=== PATIENT | male | born 1950 | race Caucasian/White ===

== ENCOUNTER 2018-01-01 14:20 | Emergency (ER) | payer MEDICARE ==
--- NOTE | 2018-01-01 15:28 | ER Document Report ---
HPI - HPI Patient complains to provider of: Right hand pain Onset: Other - 3 weeks Onset/Duration: Persistent Quality of pain: Achy Pain Level: 5 Context: Patient presents complaining of right hand pain involving his right second metacarpal that extends into his right second finger and subtly into the right third finger. Patient has seen his primary doctor for this as well as the urgent care on 2 separate occasions. Patient was treated for gout last week with Indocin without any improvement of his symptoms. Patient states that he returned to his doctor today and was advised to come here for antibiotics. patient denies any injury Associated Symptoms: Other - Right hand pain and swelling. denies: Fever Exacerbated by: Movement Relieved by: Denies Similar symptoms previously: No Recently seen / treated by doctor: Yes - ROS ROS below otherwise negative: Yes Systems Reviewed and Negative: Yes All other systems reviewed and negative - CONSTITUTIONAL Constitutional: DENIES: Fever, Chills - MUSCULOSKELETAL Musculoskeletal: REPORTS: Extremity pain, Swelling - DERM Skin Color: Erythema Skin Problems: None Past Medical History - General Information source: Patient - Social History Smoking Status: Never Smoker Frequency of alcohol use: Occasional Drug Abuse: None Occupation: None Family History: Reviewed & Not Pertinent - Past Medical History Cardiac Medical History: Reports: Hx Hypertension Neurological Medical History: Reports: Hx Seizures Skin Medical History: Reports Hx Eczema Surgical Hx: Negative Vertical Provider Document - CONSTITUTIONAL Exam Limitations: No Limitations General Appearance: WD/WN, No Apparent Distress - INFECTION CONTROL TRAVEL OUTSIDE OF THE [place] IN LAST 30 DAYS: No - HEENT HEENT: Atraumatic, Normocephalic - NECK Neck: Normal Inspection - RESPIRATORY Respiratory: Breath Sounds Normal, No Respiratory Distress - CARDIOVASCULAR Cardiovascular: Regular Rate, Regular Rhythm Pulses: Normal: Radial - BACK Back: Normal Inspection - MUSCULOSKELETAL/EXTREMETIES Musculoskeletal/Extremeties: Tender - Right hand second MCP tenderness with overlying erythema, area is swollen, patient with tenderness to right second finger. Patient with tenderness with palpation of flexor tendon, Edema - NEURO Level of Consciousness: Awake, Alert, Appropriate Motor/Sensory: No Motor Deficit - DERM Integumentary: Warm, Dry Notes: Erythema overlying right second MCP joint Patient with skin peeling concerning for eczema to right hand Course - Re-evaluation Re-evalutation: 01/01/18 17:33 Dr. Sharma to bedside for examination, recommend CT with IV contrast of the affected area, does not suspect flexor tenosynovitis 01/01/18 20:[address] Sharma regarding patient's CT scan report. Recommends obtaining patient's tetanus given foreign body on skin report. Also recommends placing patient on Cipro and clindamycin and having him follow-up with orthopedic doctor as an outpatient. No concern for tenosynovitis at this time. No concern for drainable abscess. 01/01/18 20:26 Patient had an erroneously recorded oxygen saturation of 62%. The IT department has been unable to correct this in the chart. - Vital Signs Vital signs: 01/01/18 15:51 01/01/18 15:55 Temp Pulse Resp BP Pulse Ox 01/01/18 15:52 97 01/01/18 15:32 62 97 01/01/18 14:44 98.4 F 62 18 136/54 H 97 - Laboratory Result Diagrams: 01/01/18 16:00 01/01/18 16:00 Laboratory results interpreted by me: 01/01/18 20:25 Labs- Entire Visit 01/01/18 01/01/18 16:00 16:00 WBC 10.2 RBC 4.55 Hgb 13.5 Hct 39.6 MCV 87 MCH 29.6 MCHC 34.0 RDW 14.0 Plt Count 314 Seg Neutrophils % 55.6 Lymphocytes % 29.9 Monocytes % 10.3 Eosinophils % 3.4 Basophils % 0.8 Absolute Neutrophils 5.6 Absolute Lymphocytes 3.0 Absolute Monocytes 1.0 Absolute Eosinophils 0.3 Absolute Basophils 0.1 ESR 50 H Sodium 138.1 Potassium 4.5 Chloride 102 Carbon Dioxide 25 Anion Gap 11 BUN 22 H Creatinine 0.79 Est GFR ( Amer) > 60 Est GFR (Non-Af Amer) > 60 Glucose 102 Uric Acid 5.3 Calcium 10.4 H C-Reactive Protein 35.8 H - Diagnostic Test Radiology reviewed: Image reviewed, Reports reviewed Discharge - Discharge Clinical Impression: Foreign body of finger Hand pain Qualifiers: Laterality: right Qualified Code(s): M79.641 - Pain in right hand Cellulitis Qualifiers: Site of cellulitis: extremity Site of cellulitis of extremity: upper extremity Laterality: right Qualified Code(s): L03.113 - Cellulitis of right upper limb Condition: Stable Disposition: HOME, SELF-CARE Instructions: Cellulitis ([facility]), Ciprofloxacin ([facility]), Clindamycin ([facility]), Retained Subcutaneous Foreign Object ([facility]) Additional Instructions: Return immediately for any new or worsening symptoms Followup with your primary care provider, call tomorrow to make a followup appointment Follow-up with orthopedic hand specialist, call Thursday for an appointment Prescriptions: Ciprofloxacin HCl [Cipro 500 mg Tablet] 500 mg PO BID #14 tablet Clindamycin HCl [Cleocin Hcl] 300 mg PO QID #28 capsule Referrals: ELICIA ODONNELL MD [Primary Care Provider] - Follow up as needed LISBET TARANGO DO [ACTIVE STAFF] - 01/04/18
--- NOTE | 2018-01-01 15:57 | RADIOLOGY REPORT (SQ) ---
EXAM DESCRIPTION: HAND RIGHT 3 VIEWS COMPLETED DATE/TIME: 01/01/2018 3:37 pm REASON FOR STUDY: r 2nd MCP pain, 2nd finger pain/swelling COMPARISON: 08/20/2016 EXAM PARAMETERS: NUMBER OF VIEWS: Three views. TECHNIQUE: AP, lateral and oblique radiographic images acquired of the right hand. LIMITATIONS: None. FINDINGS: MINERALIZATION: Normal. BONES: Cystic changes are present in the lunate. No acute osseous abnormality is seen. JOINTS: The widening of the scapholunate interval seen on the prior study is slightly less prominent. SOFT TISSUES: No soft tissue swelling. No foreign body. OTHER: No other significant finding. IMPRESSION: There is no acute abnormality. Findings are as described. TECHNICAL DOCUMENTATION: JOB ID: [id number] [employer]- All Rights Reserved Reading location - IP/workstation name: [email or web address]
[2018-01-01 16:17] LABS: ABSOLUTE BASOPHILS # (AUTO) 0.1 10^3/uL (0.0-0.2); ABSOLUTE EOSINOPHILS # (AUTO) 0.3 10^3/uL (0.0-0.6); ABSOLUTE NEUT (AUTO) 5.6 10^3/uL (1.7-8.2); BASOPHILS % (AUTO) 0.8 % (0-2); EOSINOPHILS % (AUTO) 3.4 % (0-6); HEMATOCRIT 39.6 % (37.9-51.0); HEMOGLOBIN 13.5 g/dL (13.5-17.0); LYMPHOCYTES % (AUTO) 29.9 % (13-45); MEAN CORPUSCULAR HEMOGLOBIN 29.6 pg (27.0-33.4); MEAN CORPUSCULAR VOLUME 87 fl (80-97); MONOCYTES % (AUTO) 10.3 % (3-13); PLATELET COUNT 314 10^3/uL (150-450); RED BLOOD COUNT 4.55 10^6/uL (4.35-5.55); SEGMENTED NEUTROPHILS % (AUTO) 55.6 % (42-78); TOTAL CELLS COUNTED % (AUTO) 100 %; WHITE BLOOD COUNT 10.2 10^3/uL (4.0-10.5)
[2018-01-01 16:37] LABS: ANION GAP 11 (5-19); BLOOD UREA NITROGEN 22 mg/dL (7-20); C-REACTIVE PROTEIN 35.8 mg/L (<10.0); CALCIUM 10.4 mg/dL (8.4-10.2); CARBON DIOXIDE 25 mmol/L (22-30); CHLORIDE 102 mmol/L (98-107); GLUCOSE 102 mg/dL (75-110); POTASSIUM 4.5 mmol/L (3.6-5.0); SODIUM 138.1 mmol/L (137-145); URIC ACID 5.3 mg/dL (3.5-8.5)
[2018-01-01 16:59] LABS: ERYTHROCYTE SEDIMENTATION RATE 50 mm/hr (0-20)
[2018-01-01] MEDS ORDERED: ACETAMINOPHEN 325 MG TABLET PO ONE (18:29)
--- NOTE | 2018-01-01 20:09 | RADIOLOGY REPORT (SQ) ---
EXAM DESCRIPTION: CT RT UPPER EXTREMITY WITH COMPLETED DATE/TIME: 01/01/2018 7:27 pm REASON FOR STUDY: R hand 2,3 finger pain, swelling COMPARISON: None. TECHNIQUE: Postcontrast axial imaging performed through the right hand with reformatted coronal and sagittal imaging windowed for bone and soft tissues. Images saved to PACS. 3D IMAGING: Were 3D images as MIP, SSD, or volume rendering performed at the work station? Yes All CT scanners at this facility use dose modulation, iterative reconstruction, and/or weight based d osing when appropriate to reduce radiation dose to as low as reasonably achievable (ALARA). [facility]: Dose Right [facility]: CareDose [facility]: Dose Right [facility]: Teradose 4D [facility]: [place] CONTRAST TYPE AND DOSE: contrast/concentration: Isovue 370.00 mg/ml; Total Contrast Delivered: 50.0 ml; Total Saline Delivered: 60.0 ml RENAL FUNCTION: GFR > 60. LIMITATIONS: None. RADIATION DOSE: CT Rad equipment meets quality standard of care and radiation dose reduction techniq ues were employed. CTDIvol: 2.6 mGy. DLP: 65 mGy-cm.mGy. FINDINGS: 2 mm metallic foreign body in the dorsal soft tissues of the 2nd digit slightly distal and radial to the PIP. Diffuse soft tissue swelling in the 2nd digit more focal in the flexor aspect of the PIP. Mild swelling of the 3rd digit. No defined fluid collection or rim enhancing abscess. No fracture or dislocation. OTHER: No other significant finding. IMPRESSION: 2 mm metallic foreign body in the dorsal soft tissues of the 2nd digit slightly distal a nd radial to the PIP. Diffuse soft tissue swelling in the 2nd digit more focal in the flexor aspect of the PIP. Mild swelling of the 3rd digit. No defined fluid collection or rim enhancing abscess. No fracture or dislocation. TECHNICAL DOCUMENTATION: JOB ID: [id number] [place]-72 Quality ID # [id number]: Final reports with documentation of one or more dose reduction techniques (e.g., Au tomated exposure control, adjustment of the mA and/or kV according to patient size, use of iterative reconstruction technique) 2010 [employer]- All Rights Reserved Reading location - IP/workstation name: [email or web address]
[2018-01-01] MEDS ORDERED: CIPROFLOXACIN HCL 500 MG TABLET PO ONE (20:23)
[2018-01-01] MEDS ORDERED: DIPH/PERTUSS(ACELL)/TETANUS VAC/PF 0.5 ML SYR (>=10YO) IM ONE (20:23)
[2018-01-01] MEDS ORDERED: HYDROCODONE/ACETAMINOPHEN 5-325 MG (6 TAB/ER DISP) PO PRN (20:24)
[2018-01-01] MEDS ORDERED: CLINDAMYCIN HCL 150 MG CAPSULE PO ONE (20:24)
[2018-01-01 21:08] VITALS: BP 134/55
== END 2018-01-01 21:09 | disposition home or self-care (01) ==
LOC: ER 14:20
DX: S60.459A Superficial foreign body of unspecified finger, initial encounter (principal); L03.113 Cellulitis of right upper limb; M79.641 Pain in right hand; M79.89 Other specified soft tissue disorders; Z79.899 Other long term (current) drug therapy; X58.XXXA Exposure to other specified factors, initial encounter
CPT/HCPCS: 99284; 90471; 36415; 84550; 85025; 85652; 86140; 80048; 73130; 73201; 90715; A9270 ×4

== ENCOUNTER 2018-01-04 10:22 | Inpatient (IN) | payer MEDICARE ==
[2018-01-04] MEDS ORDERED: MIDAZOLAM 2 MG/2 ML INJ ONE (15:19)
[2018-01-04] MEDS ORDERED: LIDOCAINE 2% INJ-PF (20 MG/ML) 10 ML AMPUL ONE (15:19)
[2018-01-04] MEDS ORDERED: FENTANYL CITRATE INJ/PF 100 MCG/2 ML AMPUL ONE (15:19)
[2018-01-04] MEDS ORDERED: PROPOFOL INJ 200 MG/20 ML VIAL IV ONE (15:20)
[2018-01-04] MEDS ORDERED: DEXAMETHASONE SOD PHOSPHATE INJ 4 MG/1 ML VIAL ONE (15:20)
[2018-01-04] MEDS ORDERED: ONDANSETRON HCL INJ/PF 4 MG/2 ML SDV ONE (15:20)
[2018-01-04] MEDS ORDERED: ACETAMINOPHEN 100 ML IV ONE (15:20)
[2018-01-04] MEDS ORDERED: BUPIVACAINE HCL 0.5 % INJ/PF 30 ML SDV ONE (16:44)
[2018-01-04] MEDS ORDERED: LIDOCAINE 1% INJ-PF (10 MG/ML) 30 ML SDV ONE (16:44)
[2018-01-04] MEDS ORDERED: BACITRACIN INJ 50,000 UNIT VIAL ONE (16:44)
[2018-01-04] MEDS ORDERED: ONDANSETRON 4 MG TAB.RAPDIS PO PRN (17:21)
[2018-01-04] MEDS ORDERED: PROMETHAZINE HCL INJ 25 MG/1 ML VIAL IV PRN ×3 (17:21→17:43)
[2018-01-04] MEDS ORDERED: RINGERS SOLUTION,LACTATED 1,000 ML IV PRN (17:21)
[2018-01-04] MEDS ORDERED: CLINDAMYCIN 600 MG/D5W RTU 600 MG/50 ML RTUPB IV ONE (17:22)
[2018-01-04] MEDS ORDERED: DIPHENHYDRAMINE HCL 50 MG/ML VIAL IV PRN (17:43)
[2018-01-04] MEDS ORDERED: MEPERIDINE HCL/PF INJ 25 MG/1 ML DISP.SYRIN IV PRN (17:43)
[2018-01-04] MEDS ORDERED: OXYCODONE-ACETAMINOPHEN 5-325 MG TABLET PO PRN ×3 (17:43→17:59)
[2018-01-04] MEDS ORDERED: FENTANYL CITRATE INJ/PF 100 MCG/2 ML AMPUL IV PRN ×3 (17:43)
[2018-01-04] MEDS ORDERED: MORPHINE SULFATE 10 MG/ML INJ IV PRN (17:43)
[2018-01-04] MEDS ORDERED: ONDANSETRON HCL INJ/PF 4 MG/2 ML SDV IV PRN (17:59)
--- NOTE | 2018-01-04 18:02 | Operative Report ---
Operative Report DATE OF SURGERY: 01/04/18 PREOPERATIVE DIAGNOSIS: Right Index Septic Flexor Tenosynovitis POSTOPERATIVE DIAGNOSIS: Same OPERATION: Irrigation and Excisional Debridement Right Index Finger SURGEON: LISBET TARANGO ANESTHESIA: LMAC TISSUE REMOVED OR ALTERED: Aerobic/Anaerobic/AFB/Fungal COMPLICATIONS: None ESTIMATED BLOOD LOSS: Minimal PROCEDURE: Indication for above procedure: 67-year-old male with pain and swelling of his right index finger which is been ongoing for the past few weeks but worsened on Thursday. He was seen at the emergency room where x-rays and CT scan were done along with labs which demonstrated possible infection. Patient was started on Cipro and clindamycin without resolution of the patient's symptoms. He subsequently followed up at my office at which point we discussed treatment and the importance of operative intervention to decompress the patient's flexor sheath. Risks and benefits were explained patient verbalized understanding consented for the procedure. Procedure In Detail: Patient was seen and evaluated in the preoperative holding area. The RIGHT upper extremity was initialized and marked. Patient antibiotics were held until cultures obtained. Patient was taken back to the operative room where transferred to the operative table. Once they were adequately anesthetized a nonsterile tourniquet was placed on the upper extremity. A surgical team debriefing was performed ensuring all instrumentation was available, the surgical procedure was discussed with possible concerns reviewed. A digital block was performed utilizing 10 mL 50:50 mixture of 0.5% Marcaine and 1% lidocaine without epinephrine. The upper extremity was prepped with chlorhexidine and alcohol and draped in a sterile fashion. A timeout was done identifying correct patient, procedure and extremity everyone in attendance agree with this and verbalized no concerns. The extremity was exsanguinated the tourniquet was inflated to 200 mmHg. Longitudinal skin incision was made centered over the A1 aubrie of the index finger. The radial and ulnar neurovascular bundles were identified and retracted from the wound. The A1 aubrie was identified and incised. The A1 aubrie was released to the level of the A2 aubrie but not through the A2 aubrie. The palmar aponeurotic aubrie was released proximal to the A1 aubrie. Cloudy fluid was expressed from the flexor sheath that extended in a distal direction and was milked from distal to proximal. Cultures were obtained. Any surrounding synovium was excised and sent to microbiology. I then proceeded with a second incision just proximal to the DIP joint crease. Blunt dissection was performed the flexor sheath was then opened. A pediatric feeding tube was then fed from proximal to distal and the flexor sheath was copiously irrigated with saline. No remaining purulence was appreciated. The distal wound was left open to the proximal wound was loosely closed with 2 interrupted 3-0 nylon sutures. Wound was dressed with Xeroform and a soft dressing. Sponge counts, instrument counts, needle counts counts were correct. Patient was then awoken from anesthesia. Transferred from the operating room table to the operating room stretcher. There was no intraoperative complications patient tolerated procedure well stable to PACU. Postoperative plan: Patient will be started on IV clindamycin and Cipro this will be transitioned to the appropriate IV antibiotic pending culture sensitivity.
--- NOTE | 2018-01-04 18:57 | EKG REPORT ---
SEVERITY:- NORMAL ECG - SINUS RHYTHM : Confirmed by: Adrian Dave MD 04-Jan-2018 18:57:12
[2018-01-04] MEDS: LEVETIRACETAM 500 MG TABLET PO SCH (21:51)
[2018-01-04] MEDS: CIPROFLOXACIN 200 MG/D5W RTU 200 MG/100 ML RTUPB IV SCH (21:51)
[2018-01-05] MEDS: CLINDAMYCIN 600 MG/D5W RTU 600 MG/50 ML RTUPB IV SCH ×3 (02:53→16:52)
[2018-01-05 07:30] LABS: ABSOLUTE LYMPHOCYTES (AUTO) 1.1 10^3/uL (0.5-4.7); ABSOLUTE MONOCYTES (AUTO) 0.6 10^3/uL (0.1-1.4); ABSOLUTE NEUT (AUTO) 8.4 10^3/uL (1.7-8.2); BASOPHILS % (AUTO) 0.1 % (0-2); HEMATOCRIT 39.7 % (37.9-51.0); HEMOGLOBIN 13.5 g/dL (13.5-17.0); LYMPHOCYTES % (AUTO) 10.6 % (13-45); MEAN CORPUSCULAR HEMOGLOBIN 29.4 pg (27.0-33.4); MEAN CORPUSCULAR VOLUME 86 fl (80-97); MONOCYTES % (AUTO) 5.9 % (3-13); PLATELET COUNT 299 10^3/uL (150-450); RED CELL DISTRIBUTION WIDTH 13.2 % (11.5-14.0); SEGMENTED NEUTROPHILS % (AUTO) 83.4 % (42-78); TOTAL CELLS COUNTED % (AUTO) 100 %; WHITE BLOOD COUNT 10.1 10^3/uL (4.0-10.5)
--- NOTE | 2018-01-05 07:31 | PDOC PROGRESS REPORT ---
Subjective Progress Note for:: 01/05/18 Subjective:: Patient lying in bed comfortably. States his pain has significantly improved after surgery. Denies numbness or tingling. Denies fever or chills. Reason For Visit: RIGHT INDEX FINGER FLEXOR TENOSYNOVITIS Physical Exam Vital Signs: Temp Pulse Resp BP Pulse Ox 97.9 F 61 20 111/53 L 94 01/05/18 04:03 01/05/18 04:03 01/05/18 04:03 01/05/18 04:03 01/05/18 04:03 Intake & Output 01/04/18 01/05/18 01/06/18 06:59 06:59 06:59 Intake Total 2130 Output Total 1000 Balance 1130 Weight 91.7 kg Musculoskeletal exam: PRESENT: other - Right index finger: Dressing and drain removed today. Patient swelling significantly improved. No active purulent or serosanguineous drainage. No sensory deficits. No pain with passive stretch. Patient has pain with terminal flexion. Cap refill less than 2 seconds. Assessment & Plan - Diagnosis (1) Flexor tenosynovitis of finger Is this a current diagnosis for this admission?: Yes Plan: Patient status post I&D flexor sheath right index finger. Patient doing well. He has seen significant improvement after operative irrigation and debridement likely indicative of early flexor tenosynovitis. Given patient's clinical improvement I feel it is reasonable to proceed with possible discharge home today pending lab findings. Patient will be discharged on clindamycin and Cipro. I have strongly urged the patient to give us a contact number so if his cultures change we can alter his antibiotics. Patient will follow-up with me in 10 days or sooner if issues arise.
[2018-01-05] MEDS: CIPROFLOXACIN 200 MG/D5W RTU 200 MG/100 ML RTUPB IV SCH (09:02)
[2018-01-05] MEDS ORDERED: LISINOPRIL 10 MG TABLET PO SCH (10:00)
[2018-01-05] MEDS ORDERED: DOCUSATE SODIUM 100 MG CAPSULE PO SCH (10:00)
[2018-01-05] MEDS ORDERED: DOCUSATE SODIUM 100 MG/10 ML UDC PO SCH (10:00)
[2018-01-05] MEDS: LEVETIRACETAM 500 MG TABLET PO SCH (10:18)
--- NOTE | 2018-01-05 13:03 | Physician Advisory Note ---
Physician Advisor ProgressNote .: Pursuant to the [facility], I have reviewed the medical record for this patient. Physician Advisor Statement: Attending, please do either #1 or #2 below: 1. Document explicitly in DCSummary that: A. "At time of admission, I HAD NO DOUBT IN MY MIND that pt would require 2 MNs of hospital care & monitoring before he could safely be d/c'd, BECAUSE ___ ", - & - B. "I WAS VERY SURPRISED that pt was improved enough today for consideration of d/c." (to support Inpatient status in spite of 1 MN stay) - OR - 2. Make patient Observation status (& same for other such patients in future, from immediately after surgery; changing to Inpatient the next day if not yet sufficiently improved for d/c). Status review: Medicare pt w/evidence early flexor tenosynovitis of Rt index finger, significant swelling/pain, needing surgical decompression of flexor sheath along w/IV abx after failure of response to po abx outpt. Surgery evacuated cloudy fluid from flexor sheath. Attending documented plan from time of surgery for continued IV abx, awaiting cx results with change in abx prn based on sensitivities (cx results typically take at least 2 nights of care to finalize). Sounds to this reviewer that attending expected pt to require more than 1 MN of hospital care at the time of the Inpatient order (which was 17:21, just prior to surgery). Thanks for all you do! Feel free to call/text/[facility]-email if any ?bill [facility] [phone]
--- NOTE | 2018-01-05 14:12 | PDOC DISCHARGE SUMMARY ---
General - Admit/Disc Date/PCP Admission Date/Primary Care Provider: 01/04/18 16:17 ELICIA ODONNELL MD Discharge Date: 01/05/18 - Discharge Diagnosis (1) Flexor tenosynovitis of finger Is this a current diagnosis for this admission?: Yes - Additional Information Home Medications: Oxycodone HCl/Acetaminophen [Percocet 5-325 mg Tablet] 1 - 2 tab PO ASDIR PRN # 15 tablet 08/20/16 Ciprofloxacin HCl [Cipro 500 mg Tablet] 500 mg PO BID #14 tablet 01/01/18 Clindamycin HCl [Cleocin Hcl] 300 mg PO QID #28 capsule 01/01/18 Levetiracetam [Keppra 500 mg Tablet] 1 tab PO BID 01/04/18 Lisinopril 20 mg PO DAILY 01/04/18 History of Present Illness History of Present Illness: SHANTEL BAKER is a 67 year old male admitted to the operating room to undergo urgent irrigation and drainage of flexor tendon sheath of index finger of the right hand. Hospital Course Hospital Course: 67-year-old white male who is admitted to the hospital through the operating room who undergoes incision and drainage of flexor sheath of right index finger. This is uncomplicated and he is taken to PACU in satisfactory condition. He is taken to the surgical floor where he is seen by nursing staff and Dr. Adkins for pain control. His pain is under control and he has maintained much better range of motion after irrigation and drainage. He will be discharged to his home today remaining on oral antibiotics both clindamycin and ciprofloxacin as well as oral pain medication. Follow-up with Dr. Adkins in 10 days postoperatively. Physical Exam Vital Signs: Temp Pulse Resp BP Pulse Ox 36.5 C 74 18 119/56 L 96 01/05/18 11:18 01/05/18 11:18 01/05/18 08:41 01/05/18 11:18 01/05/18 11:18 Intake & Output 01/04/18 01/05/18 01/06/18 06:59 06:59 06:59 Intake Total 2130 Output Total 1000 Balance 1130 Weight 91.7 kg Physical Exam: Grossly unchanged from exam performed this morning by Dr. Adkins. General appearance: PRESENT: no acute distress, well-developed, well-nourished Head exam: PRESENT: atraumatic, normocephalic Respiratory exam: PRESENT: unlabored Pulses: PRESENT: normal dorsalis pedis pul, +2 pedal pulses bilateral Vascular exam: PRESENT: normal capillary refill Extremities exam: PRESENT: tenderness Additional comments: No tingling or numbness no fever or chills. Pain with full flexion. Musculoskeletal exam: PRESENT: ambulatory Additional comments: Postoperative drain removed, postoperative deep edema residing still notes pain with flexion. Patient's postoperative compression dressing is in place and clean dry and intact. Neurological exam: PRESENT: alert, awake, oriented to person, oriented to place , oriented to time, oriented to situation, CN II-XII grossly intact. ABSENT: motor sensory deficit Psychiatric exam: PRESENT: appropriate affect, normal mood. ABSENT: homicidal ideation, suicidal ideation Skin exam: PRESENT: dry, intact, warm. ABSENT: cyanosis, rash Results Laboratory Results: 01/05/18 06:56 01/05/18 06:56 WBC 10.1 RBC 4.60 Hgb 13.5 Hct 39.7 MCV 86 MCH 29.4 MCHC 34.0 RDW 13.2 Plt Count 299 Seg Neutrophils % 83.4 H Lymphocytes % 10.6 L Monocytes % 5.9 Eosinophils % 0.0 Basophils % 0.1 Absolute Neutrophils 8.4 H Absolute Lymphocytes 1.1 Absolute Monocytes 0.6 Absolute Eosinophils 0.0 Absolute Basophils 0.0 Qualifiers - * PATEINT BEING DISCHARGED WITH ANY OF THE FOLLOWING DIAGNOSIS?: No VTE patient discharged on overlapping Therapy?: No Reason(s) for not prescribing Overlap Therapy:: Not indicated Plan Discharge Plan: 67-year-old white male 1 day status post irrigation and drainage of flexor tendon sheath of index finger on right hand. His intraoperative culture still revealed no bacterial growth and his white blood cell count remained stable. Patient's postoperative drain was removed and his postoperative edema is residing. He still has pain with flexion however is doing well overall. His pain is well controlled. He will remain on oral antibiotics including clindamycin 600 mg every 8 hours for the next 5 days as well as ciprofloxacin 200 mg every 12 hours for the next 5 days. He also be given a prescription for oxycodone 02/25/2025 every 6 hours as needed for pain. He will be discharged to his home today with these medications after receiving his final dose of IV antibiotics in the hospital today. He will follow-up with Dr. Adkins at [facility] 10 days postoperatively. Time Spent: Less than 30 Minutes
[2018-01-05 17:29] VITALS: BP 116/55
== END 2018-01-05 18:16 | disposition home or self-care (01) | DRG 514 ==
LOC: INOR 16:17 → 2S 18:46
PROVIDERS: ADMIT Orthopaedic Surgery; ATTEND Orthopaedic Surgery
PROC: 0LN70ZZ Release Right Hand Tendon, Open Approach (ICD-10-PCS; 2018-01-04)
PROC: 0LB70ZZ Excision of Right Hand Tendon, Open Approach (ICD-10-PCS; principal; 2018-01-04 16:30)
DX: M65.841 Other synovitis and tenosynovitis, right hand (principal); I10 Essential (primary) hypertension
CPT/HCPCS: 01810; 36415; 80048; 84550; 85025; 85652; 86140; 87015; 87040; 87070; 87075; 87077; 87101; 87116; 87186; 87205; 87206; 93005; 93010; B4082; J0131; J0744; J1100; J2250; J2405; J2704; J3010; J3490